=== PATIENT | male | born 1990 | race Caucasian/White ===

== ENCOUNTER 2021-09-12 16:49 | Emergency (ER) | payer OTHER ==
[2021-09-12 19:44] LABS: RED BLOOD COUNT 4.47 M/UL (4.20-5.50); WHITE BLOOD COUNT 6.8 K/UL (4.5-11.0)
[2021-09-12 20:03] LABS: BUN/CREATININE RATIO 11 (0-10)
== END 2021-09-14 08:55 ==
LOC: ER1 16:49
PROVIDERS: Physician Assistant
DX: U07.1 COVID-19 (principal); R41.82 Altered mental status, unspecified
CPT/HCPCS: 36415; 36600; 70496; 70498; 71045; 80053; 80307; 81001; 82550; 82553; 82803; 83605; 83735; 83880; 84100; 84484; 85025; 85610; 85652; 85730; 86140; 87040; 87081; 87086; 87880; 93005; 99285; J7030; Q9967